=== PATIENT | female | born 1980 | race Caucasian/White ===

== ENCOUNTER → 2022-04-14 | Outpatient (CLI) | payer BC ==
[~2022-04-14] MED LIST: ACHD5005 PO; BUTA1CAP39 PO; CYCL10TA9 PO; LISI10TA PO; PRD20T PO; SERT50TA PO
--- NOTE | 2022-04-14 16:24 | Diagnostic Imaging Report ---
MRI LUMBAR SPINE W/O CONTRAST Date: 04/14/2022 1:36 PM Indication: LUMBAGO W/ SCIATICA RIGHT SIDE Comparison: MRI of the lumbar spine on 06/29/2015. Technique: Multi-planar multi-weighted magnetic resonance imaging of the lumbar spine was performed without intravenous contrast using the standard lumbar spine protocol. FINDINGS: Mild anterolisthesis of L4 and L5. Otherwise the lumbar lordosis is preserved. No acute fracture. Moderate multilevel degenerative disc desiccation and disc height loss. No marrow replacing process to suggest malignancy. The conus terminates at a normal level. No abnormal signal is seen within the visualized distal spinal cord. Redundant appearance of the cauda equina. No soft tissue abnormality in the visualized abdomen or pelvis. T12-L1: Disc bulge. Mild facet arthropathy. No significant spinal stenosis or neural foraminal narrowing. L1-L2: Disc bulge. Mild facet arthropathy. No significant spinal stenosis or neural foraminal narrowing. L2-L3: Disc bulge. Mild facet arthropathy. Mild spinal stenosis. Mild bilateral neural foraminal narrowing. L3-L4: Disc bulge. Moderate facet arthropathy. Ligamentum flavum thickening. Moderate spinal stenosis. Moderate right and mild left neural foraminal narrowing. L4-L5: Severe facet arthritis. Disc bulge. Ligamentum flavum thickening. Severe spinal canal stenosis. Moderate bilateral neural foraminal narrowing. L5-S1: Disc bulge. Mild facet arthropathy. Mild spinal canal narrowing. Moderate left and mild right neural foraminal narrowing. IMPRESSION: Progressed degenerative changes of the lumbar spine since 2016 now with multilevel high-grade spinal canal and neural foraminal stenosis, worst at L3-L4 and L4-L5. L3-L4: Disc bulge. Moderate facet arthropathy. Ligamentum flavum thickening. Moderate spinal stenosis. Moderate right and mild left neural foraminal narrowing. L4-L5: Severe facet arthritis. Disc bulge. Ligamentum flavum thickening. Severe spinal canal stenosis. Moderate bilateral neural foraminal narrowing. Dictated by: Dictated on workstation # [id number]
== END ==
LOC: RAD 12:42
PROVIDERS: ATTEND Nurse Practitioner Family
DX: M47.816 Spondylosis without myelopathy or radiculopathy, lumbar region (principal); M51.26 Other intervertebral disc displacement, lumbar region; M48.061 Spinal stenosis, lumbar region without neurogenic claudication
CPT/HCPCS: 72148

== ENCOUNTER 2022-06-20 23:21 | Emergency (ER) | payer BC ==
[2022-06-20] MEDS ORDERED: hydrALAZINE (APESOLINE) 20 MG/ML VIAL IM STA (23:27)
[2022-06-20] MEDS ORDERED: hydrOXYzine (VISTARIL/ATARAX) 25 MG capsule/tablet PO ONE (23:30)
--- NOTE | 2022-06-20 23:31 | ED General ---
General Stated Complaint: ANXIETY,RESTLESS LEGS Source of Information: Patient, EMS Exam Limitations: No Limitations History of Present Illness Date Seen by Provider: June 20, 2022 Time Seen by Provider: 23:21 Initial Comments 42-year-old female presents to the emergency department today via EMS for anxiousness, tingling in her upper and lower extremities. She had cervical fusion with an anterior approach on Monday by Dr. Jorge at [facility]. She states she was doing well and this evening started to have what she thought initially was panic type symptoms. She has had panic attacks in the past and has been on Xanax but recently has not been on any medications. She states she developed tingling in her upper and lower extremities and then started worrying about complications of possible surgery. She does admit on arrival that she thinks most of her symptoms are related to anxiety and she has had all the symptoms with anxiety in the past. She denies any weakness in her upper or lower extremities. No saddle anesthesia, loss of bowel or bladder control or urinary retention. She was significantly hypertensive during transport. She states she was very hypertensive after her neck surgery as well and she was started on 3 different medications for blood pressure. All other systems reviewed and negative except documented per HPI. Voice recognition software was used to help create this chart Allergies and Home Medications Allergies Coded Allergies: cefixime (Unverified Allergy, Mild, 08/04/08) Patient Home Medication List Home Medication List Reviewed: Yes Butalb/Acetaminophen/Caffeine (Fioricet 50-300-40 mg Capsule) 1 Each Capsule, 1 EACH PO Q4H Prescribed by: CLEMENCIA PINEDA on 06/05/13 2491 Hydrocodone Bit/Acetaminophen (Lortab 5 Mg Tablet) 1 Each Tablet, 1-2 EACH PO Q6H PRN Prescribed by: MARY RUFF on 10/18/12 1046 Review of Systems Review of Systems Constitutional: see HPI Past Mrckfnq-Areclf-Ltkxys Hx Patient Social History Tobacco Use?: No Use of E-Cig and/or Vaping dev: No Substance use?: No Alcohol Use?: No Past Medical History Reproductive Disorders: No Family Medical History Reviewed Nursing Family Hx No Pertinent Family Hx Physical Exam Vital Signs Vital Signs - First Documented 06/20/22 23:22 Pulse 100 Resp 22 B/P (MAP) 213/134 (160) Pulse Ox 98 O2 Delivery Room Air Capillary Refill : Height, Weight, BMI Height: 5'" Weight: 185lbs. oz. 83.829198do; BMI Method:Stated General Appearance: No Apparent Distress, Anxious, Other (Family) HEENT: PERRL/EOMI, TMs Normal, Normal ENT Inspection, Pharynx Normal Neck: Full Range of Motion, Other (Anterior incision healing well without evidence for infection. 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 Norm as Tested Skin: Normal Color, Warm/Dry Progress/Results/Core Measures Suspected Sepsis SIRS Temperature: Pulse: Respiratory Rate: Blood Pressure / Mean: Results/Orders My Orders Orders - AVIS RAMOS DO Hydroxyzine Cap/Tab (Vistaril) (06/20/22 23:30) Hydralazine Injection (Apresoline Inject (06/20/22 23:27) Ct Cervical Spine Wo (06/21/22 00:01) Medications Given in ED Current Medications Medications Dose Ordered Sig/Priscila Route Start Time Stop Time Status Last Admin Dose Admin Hydroxyzine Pamoate 50 mg ONCE ONCE PO 06/20/22 23:30 06/20/22 23:31 DC 06/20/22 23:51 50 MG Vital Signs/I&O 06/20/22 23:22 Pulse 100 Resp 22 B/P (MAP) 213/134 (160) Pulse Ox 98 O2 Delivery Room Air Capillary Refill : Departure Communication (Admissions) Patient is hemodynamically stable with no neurologic deficits. She continues quite anxious requesting imaging. Denies any additional vomiting imaging however the patient was very insistent so imaging was obtained and normal with only postoperative changes and no acute findings. Her anxiety was treated with hydroxyzine. She was given hydralazine here and she is discharged home recommendation to continue her blood pressure medicine, follow-up with her surgeon. Impression Primary Impression: Anxiousness Disposition: 01 HOME, SELF-CARE Condition: Stable Departure-Patient Inst. Referrals: NO,LOCAL PHYSICIAN (PCP/Family) Primary Care Physician Patient Instructions: Anxiety, Adult ED Add. Discharge Instructions: You were seen in the emergency department today for tingling in your arms and legs. I think your symptoms are related to anxiety. There is no evidence or complication of your surgery at this time. I recommend you avoid caffeine use, increase your fluids at home, rest. If your anxiety symptoms continue use the hydroxyzine as needed which has been prescribed for you. Should you need something more longstanding I recommend you talk to your primary care doctor. Return to the emergency department for any severe concerns. AVIS RAMOS DO June 20, 2022 23:31
[2022-06-21 00:53] VITALS: BP 143/95
[2022-06-21] MEDS ORDERED: HYDR50TA76 PO (00:54)
--- NOTE | 2022-06-21 05:17 | Diagnostic Imaging Report ---
PROCEDURE: CT cervical spine without contrast. TECHNIQUE: Multiple contiguous axial images were obtained through the cervical spine without the use of intravenous contrast. Sagittal and coronal reformations were then performed. Auto Exposure Controls were utilized during the CT exam to meet ALARA standards for radiation dose reduction. INDICATION: 42-year-old female presents with paresthesias. Patient has recent cervical fusion. COMPARISONS: MRI cervical spine 10/05/2015. FINDINGS: Axial images in sagittal and coronal reconstructions of the cervical spine show a previous anterior cervical fusion from C5 through C7. Cervical vertebral bodies appear well aligned and vertebral body heights appear well-maintained. There are no lucencies to suggest hardware failure. The disc spacers appear well positioned. Lung apices are clear. Superior mediastinum is grossly unremarkable. Parapharyngeal and paraspinous soft tissues are also grossly normal. There are scattered cervical lymph nodes most likely reactive in nature. IMPRESSION: 1. Previous anterior cervical fusion from C5 through C7 with no evidence of hardware failure. 2. No areas of acute fracture or acute subluxation. 3. Some reactive cervical lymphadenopathy. If symptoms warrant or persist, an MRI may be of further value. Essentially agree with [place] report. Dictated by: Dictated on workstation # [id number]
== END 2022-06-21 00:55 | disposition home or self-care (01) ==
LOC: EDUNIT# 23:21 → ER 23:23
DX: F41.9 Anxiety disorder, unspecified (principal); I10 Essential (primary) hypertension; Z79.899 Other long term (current) drug therapy; Z28.310 Unvaccinated for COVID-19
CPT/HCPCS: 72125

== ENCOUNTER → 2022-10-27 | Outpatient (CLI) | payer BC ==
[~2022-10-27] MED LIST changes: +HYDR50TA76 PO
--- NOTE | 2022-10-27 18:17 | Diagnostic Imaging Report ---
INDICATION: Cervical spine fusion surgery. TECHNIQUE: AP, lateral views cervical spine.. CORRELATION STUDY: CT cervical spine 06/21/2022 FINDINGS: Postoperative ACDF with plate and screws C5-C7. Hardware appearing to be intact. Incomplete bony fusion across the disc spaces. Straightening of the normal cervical lordosis. There is a very mild rightward curvature of the mid cervical spine. Nonfused segments appearing unremarkable. Prevertebral soft tissues are unremarkable. Visualized lung apices unremarkable. IMPRESSION: 1. Postoperative ACDF C5-C7. Dictated by: Dictated on workstation # [id number]
== END ==
LOC: RAD 14:52
PROVIDERS: ATTEND Neurological Surgery
DX: Z98.1 Arthrodesis status (principal)
CPT/HCPCS: 72040